=== PATIENT | female | born 1985 | race Caucasian/White ===

== ENCOUNTER → 2017-01-10 | Outpatient (CLI) | payer OTHER, MEDICAID | LOC: CIMAGING 09:19 | PROVIDERS: ATTEND Internal Medicine | DX: R10.9 Unspecified abdominal pain (principal); Z90.49 Acquired absence of other specified parts of digestive tract | CPT/HCPCS: 76700-PO ==

== ENCOUNTER → 2018-02-09 | Outpatient (CLI) | payer OTHER, MEDICAID | LOC: CIMAGING 17:37 | PROVIDERS: ATTEND Family Medicine | DX: K59.00 Constipation, unspecified (principal); K62.89 Other specified diseases of anus and rectum | CPT/HCPCS: 74018-PO ==